=== PATIENT | male | born 1950 | race Caucasian/White ===

== ENCOUNTER 2017-06-11 22:34 | Emergency (ER) | payer OTHER ==
[2017-06-11 22:40] VITALS: RESP 16; TEMP 98.2; O2SAT 95
[2017-06-11 23:06] LABS: COLOR YELLOW; LEUKOCYTE ESTERASE,URINE NEGATIVE (NEGATIVE); NITRITE,URINE NEGATIVE (NEGATIVE)
[2017-06-11 23:25] LABS: % IMMATURE GRANULYOCYTES 0.4 % (0.0-1.1); ABSOLUTE IMMATURE GRANULOCYTES 0.02 10^3/uL (0.00-0.10); ADD DIFF? NO; ADD MORPH? NO; ADD SCAN? NO; ATYPICAL LYMPHOCYTE FLAG 0 (0-99); FRAGMENT RBC FLAG 0 (0-99); HEMATOCRIT 45.2 % (40.0-51.0); HEMOGLOBIN 15.5 g/dL (13.7-17.5); LEFT SHIFT FLG 0 (0-99); LIPEMIA HEMOLYSIS FLAG 90 (0-99); MEAN CELL HEMOGLOBIN 30.2 pg (27.9-34.1); MEAN CELL HEMOGLOBIN CONCENTR. 34.3 g/dL (32.4-36.7); MEAN CELL VOLUME 87.9 fL (81.5-99.8); MEAN PLATELET VOLUME 9.7 fL (8.7-11.7); PLATELET CLUMPS FLAG 0 (0-99); PLATELET COUNT 178 10^3/uL (150-400); RED BLOOD CELL COUNT 5.14 10^6/uL (4.40-6.38); RED CELL DISTRIBUTION WIDTH 12.1 % (11.5-15.2)
[2017-06-11 23:40] LABS: ALANINE AMINOTRANSFERASE 29 IU/L (21-72); ALBUMIN 4.1 g/dL (3.5-5.0); ALKALINE PHOSPHATASE 77 IU/L (38-126); ANION GAP 12 mEq/L (8-16); ASPARTATE AMINOTRANSFERASE 18 IU/L (17-59); BILIRUBIN,TOTAL 0.5 mg/dL (0.1-1.4); CALCIUM 9.3 mg/dL (8.5-10.4); CARBON DIOXIDE 24 mEq/l (22-31); CHLORIDE 105 mEq/L (97-110); CREATININE 0.9 mg/dL (0.7-1.3); GLOMERULAR FILTRATION RATE > 60; GLUCOSE 103 mg/dL (70-100); POTASSIUM 4.3 mEq/L (3.5-5.2); SODIUM 141 mEq/L (134-144); TOTAL PROTEIN 6.8 g/dL (6.3-8.2)
--- NOTE | 2017-06-11 23:51 | EDPHY ---
H & P Stated Complaint: RLQ abd pain Time Seen by Provider: 06/11/17 22:51 HPI/ROS: HPI The patient presents with right lower quadrant abdominal pain which has been present for the last 2 days and is getting progressively worse. At 1st the pain was only present when he was standing, now the pain is present constantly for the last several hours. The pain is dull in nature, mild. Does not have any difficulty eating or drinking, he has had normal bowel movements, he has mild dysuria. He was seen at [facility] over the last few days and had a CT scan of his abdomen pelvis performed with IV contrast which demonstrated a normal appearing appendix and diverticulosis. He was noted to have type small fat containing bilateral direct inguinal hernias, labs were normal. He presents now because the pain is more severe.. He does have a history of what sounds like a hydrocele, discovered 5 years ago. REVIEW OF SYSTEMS Constitutional: No fever, no chills. Eyes: No discharge. ENT: No sore throat. Cardiovascular: No chest pain, no palpitations. Respiratory: No cough, no shortness of breath. Gastrointestinal: No abdominal pain, no vomiting. Genitourinary: No hematuria. Musculoskeletal: No back pain. Skin: No rashes. Neurological: No headache. PMHx: Healthy PHYSICAL General Appearance: Alert, no distress Eyes: Pupils equal and round no pallor or injection ENT, Mouth: Mucous membranes moist Respiratory: There are no retractions, lungs are clear to auscultation Cardiovascular: Regular rate and rhythm Gastrointestinal: Abdomen is soft and with tenderness in the right lower quadrant, no masses, bowel sounds normal : No palpable hernia, scrotum is enlarged though nontender Neurological: A&O, moves all extremities Skin: Warm and dry, no rashes Musculoskeletal: Neck is supple non tender Extremities: symmetrical, full range of motion Psychiatric: Patient is oriented X 3, there is no agitation Source: Patient, Old records Exam Limitations: No limitations - Personal History Current Tetanus/Diphtheria Vaccine: Unsure Current Tetanus Diphtheria and Acellular Pertussis (TDAP): Unsure - Medical/Surgical History Hx Asthma: No Hx Chronic Respiratory Disease: No Hx Diabetes: No Hx Cardiac Disease: Yes Hx Renal Disease: No Hx Cirrhosis: No Hx Alcoholism: No Hx HIV/AIDS: No Hx Splenectomy or Spleen Trauma: No Other PMH: L knee surgery, tonsilectomy - Social History Smoking Status: Former smoker Constitutional: Initial Vital Signs Temperature (C) 36.8 C 06/11/17 22:38 Heart Rate 71 06/11/17 22:38 Respiratory Rate 16 06/11/17 22:38 Blood Pressure 165/107 H 06/11/17 22:38 O2 Sat (%) 95 06/11/17 22:38 O2 Delivery Mode Room Air Allergies/Adverse Reactions: No Known Allergies Allergy (Unverified 06/11/17 22:37) Home Medications: Medication Instructions Recorded Aspirin 10/03/09 Medical Decision Making - Diagnostics Imaging Results: Scrotal ultrasound demonstrates bilateral hydroceles with septations, discussed with the radiologist guest relations officer. Imaging: Discussed imaging studies w/ house calls nurse practitioner Radiologist Differential Diagnosis: This is a 66-year-old male who presents with right lower quadrant abdominal pain which has been present for the last several days with associated dysuria. On exam, he is well-appearing, has normal vital signs, has mild tenderness of the right lower quadrant. I was able to obtain records from [facility]. The patient has had a CT scan with contrast demonstrating normal appendix, small bilateral fat containing inguinal hernias and umbilical hernia. He had labs performed today which were unremarkable, including a UA. Testicular ultrasound was performed which demonstrated bilateral septated hydroceles, possible pyelocele. His testicles appear normal. He does have a history of what seems to be a hydrocele. He does not have tenderness of his testicles to raise suspicion for any serious infection. There is no sign of epididymitis on the ultrasound. He is followed at [facility] and I contacted the [facility] patient line and told them about his visit today in her findings. I think he needs follow up with Urology and his primary care doctor will see him in 1-2 days and arrange for this. I have given him a copy of all of his imaging. Differential diagnosis includes inguinal hernia, appendicitis, diverticulitis, scrotal abscess. - Data Points Laboratory Results: Laboratory Results 06/11/17 23:15 06/11/17 23:15 06/11/17 06/11/17 06/11/17 23:15 23:15 22:45 WBC 5.67 10^3/uL 10^3/uL (3.80-9.50) RBC 5.14 10^6/uL 10^6/uL (4.40-6.38) Hgb 15.5 g/dL g/dL (13.7-17.5) Hct 45.2 % % (40.0-51.0) MCV 87.9 fL fL (81.5-99.8) MCH 30.2 pg pg (27.9-34.1) MCHC 34.3 g/dL g/dL (32.4-36.7) RDW 12.1 % % (11.5-15.2) Plt Count 178 10^3/uL 10^3/uL (150-400) MPV 9.7 fL fL (8.7-11.7) Neut % (Auto) 65.8 % % (39.3-74.2) Lymph % (Auto) 21.5 % % (15.0-45.0) Dukes % (Auto) 7.9 % % (4.5-13.0) Eos % (Auto) 3.9 % % (0.6-7.6) Baso % (Auto) 0.5 % % (0.3-1.7) Nucleat RBC Rel Count 0.0 % % (0.0-0.2) Absolute Neuts (auto) 3.73 10^3/uL 10^3/uL (1.70-6.50) Absolute Lymphs (auto) 1.22 10^3/uL 10^3/uL (1.00-3.00) Absolute Monos (auto) 0.45 10^3/uL 10^3/uL (0.30-0.80) Absolute Eos (auto) 0.22 10^3/uL 10^3/uL (0.03-0.40) Absolute Basos (auto) 0.03 10^3/uL 10^3/uL (0.02-0.10) Absolute Nucleated RBC 0.00 10^3/uL 10^3/uL (0-0.01) Immature Gran % 0.4 % % (0.0-1.1) Immature Gran # 0.02 10^3/uL 10^3/uL (0.00-0.10) Sodium 141 mEq/L mEq/L (134-144) Potassium 4.3 mEq/L mEq/L (3.5-5.2) Chloride 105 mEq/L mEq/L (97-110) Carbon Dioxide 24 mEq/l mEq/l (22-31) Anion Gap 12 mEq/L mEq/L (8-16) BUN 18 mg/dL mg/dL (7-23) Creatinine 0.9 mg/dL mg/dL (0.7-1.3) Estimated GFR > 60 Glucose 103 mg/dL H mg/dL (70-100) Calcium 9.3 mg/dL mg/dL (8.5-10.4) Total Bilirubin 0.5 mg/dL mg/dL (0.1-1.4) AST 18 IU/L IU/L (17-59) ALT 29 IU/L IU/L (21-72) Alkaline Phosphatase 77 IU/L IU/L (38-126) Total Protein 6.8 g/dL g/dL (6.3-8.2) Albumin 4.1 g/dL g/dL (3.5-5.0) Urine Color YELLOW Urine Appearance MODERATELY TURBID Urine pH 7.0 (5.0-7.5) Ur Specific Luna 1.018 (1.002-1.030) Urine Protein NEGATIVE (NEGATIVE) Urine Ketones NEGATIVE (NEGATIVE) Urine Blood NEGATIVE (NEGATIVE) Urine Nitrate NEGATIVE (NEGATIVE) Urine Bilirubin NEGATIVE (NEGATIVE) Urine Urobilinogen NEGATIVE EU EU (0.2-1.0) Ur Leukocyte Esterase NEGATIVE (NEGATIVE) Urine Glucose NEGATIVE (NEGATIVE) Medications Given: Discontinued Medications Ketorolac Tromethamine (Toradol) 15 mg IVP EDNOW ONE Stop: 06/12/17 00:34 Last Admin: 06/12/17 00:35 Dose: 15 mg Departure - Departure Disposition: Home, Routine, Self-Care Clinical Impression: Hydrocele, bilateral, Right lower quadrant abdominal pain Condition: Good Instructions: Hydrocele (ED), Inguinal Hernia (ED) Additional Instructions: You have an appointment at [facility] with Dr. Hirsch Jun 14 10:20am. Please return to the emergency room if your worse in any way. You can use ice packs, ibuprofen or Tylenol as needed for the pain. You will need to have Urology follow-up. Referrals: [facility] ,. [Edm Groups for Call Sched] - As per Instructions
[2017-06-12] MEDS ORDERED: KETOROLAC 15 MG/1 ML SDV ONE (00:33)
[2017-06-12] MEDS ORDERED: KETOROLAC 15 MG/1 ML SDV IVP ONE (00:33)
[2017-06-12 03:30] VITALS: BP 130/87; PULSE 71
== END 2017-06-12 03:29 | disposition home or self-care (01) ==
DX: R10.31 Right lower quadrant pain (principal); N43.3 Hydrocele, unspecified; Z87.891 Personal history of nicotine dependence
CPT/HCPCS: 76870; 93976; 96374; 99285; J1885